=== PATIENT | female | born 2000 | race Caucasian/White ===

== ENCOUNTER 2024-05-24 09:09 | Emergency (ER) | payer MEDICAID ==
[~2024-05-24] VITALS: Ht 165.1 cm; Wt 92.3 kg
[2024-05-24 09:13] VITALS: BP 134/74; PULSE 78; RESP 16; TEMP 97.7; O2SAT 99
[2024-05-24 10:41] VITALS: BP 118/51; PULSE 68; RESP 16; TEMP 36.50292; O2SAT 99
== END 2024-05-24 10:41 | disposition home or self-care (01) ==
LOC: MED 09:09
DX: O03.9 Complete or unspecified spontaneous abortion without complication (principal); Z3A.01 Less than 8 weeks gestation of pregnancy
CPT/HCPCS: 81025; 99282